=== PATIENT | male | born 1995 | race American Indian/Alaskan Native ===

== ENCOUNTER 2017-09-04 08:34 | Emergency (ER) | payer MEDICAID ==
[2017-09-04 08:34] VITALS: BMI 18.1
--- NOTE | 2017-09-04 08:50 | C.PDOC ---
History Of Present Illness 22YO MALE PRESENTS TO ED WITH: CO PERSIST ABD PAIN X 3-4 DAYS. MULT PRIOR ER VISITS @ [facility] AND [place] FOR SAME , LAST EVAL 09/03. PT W WELL DOCUMENTED DRUG SEEKING BEHAVIOR. PT ELOPED PRIOR TO RECEIVING CT REPORT. CURRENT PAIN SIM TO PRIOR. CURRENTLY W HEALING ABD WALL ABSCESS S/P COLOSTOMY REVERSAL. ON REMICADE. NO FEVER, NVD. PS CURRENTLY TRYING TO FIND A PMD. EXAM NAD NONTOXIC ABD MILD TEND SOFT NO R/G. SKIN HEALING DRAINING ABSCESS UMBILICAL AREA. NO ERYTHEMA, SWELL, TEND REMAINDER NEG Time Seen by Provider: 09/04/17 08:40 History Per: Patient History/Exam Limitations: no limitations Onset/Duration Of Symptoms: Days (3-4) Current Symptoms Are (Timing): Still Present Past Medical History Reviewed: Historical Data, Nursing Documentation, Vital Signs Vital Signs: Last Vital Signs Temp 98.6 F 09/04/17 08:40 Pulse 68 09/04/17 08:40 Resp 18 09/04/17 08:40 BP 106/61 09/04/17 08:40 Pulse Ox 98 09/04/17 08:40 - Medical History PMH: Anemia, Anxiety, Crohn's Disease, Pneumonia, Chronic Pain Denies: Chronic Kidney Disease, TIA - [facility] Procedures TRANSFUSE NONAUT RED BLOOD CELLS IN PERIPH VEIN, PERC (08/27/16) Family History: States: Unknown Family Hx - Social History Hx Tobacco Use: No Hx Alcohol Use: No Hx Substance Use: No - Immunization History Hx Tetanus Toxoid Vaccination: No Hx Influenza Vaccination: No Hx Pneumococcal Vaccination: No Review Of Systems Except As Marked, All Systems Reviewed And Found Negative. Constitutional: Negative for: Fever, Chills Gastrointestinal: Positive for: Abdominal Pain. Negative for: Nausea, Vomiting , Diarrhea Physical Exam - Physical Exam Appears: Non-toxic, No Acute Distress Skin: Normal Color, Warm, Dry Head: Atraumatic, Normacephalic Eye(s): bilateral: Normal Inspection, PERRL, EOMI Neck: Normal ROM, Supple Chest: Symmetrical Cardiovascular: Rhythm Regular Respiratory: Normal Breath Sounds, No Wheezing Gastrointestinal/Abdominal: Soft, Tenderness (mild), No Guarding, No Rebound, Other (healing draining abscess to umbilical area, no erythema, edema or tenderness.) Male Genital: Normal Inspection Extremity: Normal ROM, No Deformity Neurological/Psych: Oriented x3 Progress - Re-Evaluation Re-evaluation Note: 09/04/17 09:09 ADVISED BY RN PT REFUSING LABS. PT ADVISED OF CT REPORT, NEED TO REEVAL FOR POSSIBLE WORSENING ABD FINDINGS. - Data Reviewed Data Reviewed: Lab, Old records Disposition Counseled Patient/Family Regarding: Diagnosis, Need For Followup - Disposition Referrals: [facility] [Outside] [facility] [Outside] Sydney Viveros MD [Staff Provider] - Disposition: HOME/ ROUTINE Disposition Time: 09:00 Condition: GOOD Additional Instructions: YOU HAVE BEEN ADVISED OF THIS HOSPITAL'S NARCOTIC POLICY. FOLLOW UP PAIN MANAGEMENT REFERRAL. Instructions: Chronic Pain Forms: [employer] (Kyrgyz) - Clinical Impression Clinical Impression: Chronic pain - Scribe Statement The provider has reviewed the documentation as recorded by the Scribe (Bailee Rapp) Provider Attestation: All medical record entries made by the Scribe were at my direction and personally dictated by me. I have reviewed the chart and agree that the record accurately reflects my personal performance of the history, physical exam, medical decision making, and the department course for this patient. I have also personally directed, reviewed, and agree with the discharge instructions and disposition.
[2017-09-04 09:04] VITALS: BP 106/61; PULSE 68; RESP 18; TEMP 98.6; O2SAT 98
== END 2017-09-04 09:15 | disposition home or self-care (01) ==
LOC: C.ER 08:34
DX: G89.29 Other chronic pain (principal)